=== PATIENT | male | born 1990 | race African-American/Black ===

== ENCOUNTER 2022-09-10 00:03 | Emergency (ER) | payer MEDICAID, OTHER ==
[~2022-09-10] VITALS: Ht 175.3 cm; Wt 86.0 kg
[2022-09-10 00:13] VITALS: TEMP 98.1; O2SAT 100
[2022-09-10] MEDS ORDERED: IBUPROFEN 400MG TABLET PO ONE (02:30)
[2022-09-10 02:40] VITALS: BP 120/83; PULSE 86; RESP 18
[2022-09-10] MEDS ORDERED: IBUP-2028 MT (02:45)
== END 2022-09-10 03:36 | disposition home or self-care (01) ==
LOC: ER 00:03
DX: M79.672 Pain in left foot (principal)
CPT/HCPCS: 73630; 29515; 99283; Z7610